=== PATIENT | male | born 1960 ===

== ENCOUNTER 2020-09-03 08:15 | Outpatient (CLI) | payer OTHER | END 2020-09-03 19:30 | disposition home or self-care (01) | LOC: INF 08:15 | PROVIDERS: ATTEND Internal Medicine | DX: Z23 Encounter for immunization (principal) | CPT/HCPCS: 96372 ==

== ENCOUNTER 2020-09-23 08:05 | Outpatient (CLI) | payer OTHER | END 2020-09-23 19:50 | disposition home or self-care (01) | LOC: INF 08:05 | PROVIDERS: ATTEND Internal Medicine | DX: Z23 Encounter for immunization (principal) | CPT/HCPCS: 96372 ==